=== PATIENT | female | born 1975 | race Two or more races ===

== ENCOUNTER 2019-01-09 08:59 | Outpatient (CLI) | payer OTHER | END 2019-01-09 09:07 | disposition home or self-care (01) | LOC: LAB 08:59 | DX: E16.1 Other hypoglycemia (principal); E78.49 Other hyperlipidemia; C56.2 Malignant neoplasm of left ovary ==

== ENCOUNTER → 2019-01-09 | Outpatient (CLI) | payer OTHER | END | disposition home or self-care (01) | LOC: MRI 09:22 | DX: R19.07 Generalized intra-abdominal and pelvic swelling, mass and lump (principal) | CPT/HCPCS: 72196 ==

== ENCOUNTER 2020-07-17 11:15 | Inpatient (IN) | payer OTHER ==
[~2020-07-17] VITALS: Ht 170.2 cm; Wt 59.0 kg
[2020-07-17] MEDS ORDERED: LEVOTHYROXINE25 MCG PO (15:26)
[2020-07-23] MEDS ORDERED: CELECOXIB200 MG (09:37)
[2020-07-23] MEDS ORDERED: MEDROXYPROGESTE10 MG (09:37)
[2020-07-23] MEDS ORDERED: TRI-LO-SPRINTE1 EACH (09:38)
== END 2020-07-24 11:35 | disposition home or self-care (01) | DRG 743 ==
LOC: OB/GYN 07-23 06:05 → O/R 07-23 06:05 → SURH 07-23 11:15 → OB/GYN 07-23 11:17 → SURH 07-23 12:15 → OB/GYN 07-24 11:35
PROVIDERS: ADMIT Obstetrics & Gynecology Gynecologic Oncology; ATTEND Obstetrics & Gynecology Gynecologic Oncology
PROC: 0UB90ZZ Excision of Uterus, Open Approach (ICD-10-PCS; principal; 2020-07-23 12:15)
DX: D25.1 Intramural leiomyoma of uterus (principal); E03.8 Other specified hypothyroidism

== ENCOUNTER 2020-07-26 16:02 | Emergency (ER) | payer OTHER ==
[~2020-07-26] VITALS: Ht 170.2 cm; Wt 59.0 kg
[~2020-07-26 16:02] MED LIST: CELECOXIB200 MG; LEVOTHYROXINE25 MCG PO; MEDROXYPROGESTE10 MG; TRI-LO-SPRINTE1 EACH
[2020-07-26] MEDS ORDERED: CEPHALEXIN500 MG PO (16:11)
[2020-07-26] MEDS ORDERED: FUSION PLUS CA1 EACH PO (16:11)
[2020-07-26] MEDS ORDERED: DICLOFENAC SODI75 MG PO (16:12)
== END 2020-07-26 20:21 | disposition home or self-care (01) ==
LOC: ER 16:02
DX: K59.09 Other constipation (principal)

== ENCOUNTER 2021-03-04 13:49 | Inpatient (IN) | payer OTHER ==
[~2021-03-04] VITALS: Ht 162.6 cm; Wt 59.0 kg
[~2021-03-04 13:49] MED LIST changes: +CEPHALEXIN500 MG PO; +DICLOFENAC SODI75 MG PO; +FUSION PLUS CA1 EACH PO
[2021-03-08] MEDS ORDERED: DICLOFENAC SODI75 MG (08:22)
[2021-03-21] MEDS ORDERED: OMEPRAZOLE20 M1 PO (10:47)
== END 2021-03-21 11:32 | disposition home or self-care (01) | DRG 329 ==
LOC: ER 13:49 → SURH 22:39
PROVIDERS: ADMIT Surgery; ATTEND Surgery
PROC: BW21ZZZ Computerized Tomography (CT Scan) of Abdomen and Pelvis (ICD-10-PCS; 2021-03-05)
PROC: 02HV33Z Insertion of Infusion Device into Superior Vena Cava, Percutaneous Approach (ICD-10-PCS; 2021-03-05)
PROC: BW2110Z Computerized Tomography (CT Scan) of Abdomen and Pelvis using Low Osmolar Contrast, Unenhanced and Enhanced (ICD-10-PCS; 2021-03-08)
PROC: BW2510Z Computerized Tomography (CT Scan) of Chest, Abdomen and Pelvis using Low Osmolar Contrast, Unenhanced and Enhanced (ICD-10-PCS; 2021-03-09)
PROC: 0DB80ZZ Excision of Small Intestine, Open Approach (ICD-10-PCS; 2021-03-12)
PROC: 0DTJ0ZZ Resection of Appendix, Open Approach (ICD-10-PCS; 2021-03-12)
PROC: 0DBU0ZZ Excision of Omentum, Open Approach (ICD-10-PCS; 2021-03-12)
PROC: 5A1935Z Respiratory Ventilation, Less than 24 Consecutive Hours (ICD-10-PCS; 2021-03-12)
PROC: 0BH17EZ Insertion of Endotracheal Airway into Trachea, Via Natural or Artificial Opening (ICD-10-PCS; 2021-03-12)
PROC: 0DN80ZZ Release Small Intestine, Open Approach (ICD-10-PCS; principal; 2021-03-12 13:15)
PROC: 0BP1XDZ Removal of Intraluminal Device from Trachea, External Approach (ICD-10-PCS; 2021-03-13)
PROC: 3E0F7GC Introduction of Other Therapeutic Substance into Respiratory Tract, Via Natural or Artificial Opening (ICD-10-PCS; 2021-03-13)
PROC: 3E0F7SF Introduction of Other Gas into Respiratory Tract, Via Natural or Artificial Opening (ICD-10-PCS; 2021-03-19)
DX: K56.50 Intestinal adhesions [bands], unspecified as to partial versus complete obstruction (principal); K55.029 Acute infarction of small intestine, extent unspecified; J95.822 Acute and chronic postprocedural respiratory failure; J98.11 Atelectasis; J90 Pleural effusion, not elsewhere classified; N39.0 Urinary tract infection, site not specified; K52.89 Other specified noninfective gastroenteritis and colitis; E03.8 Other specified hypothyroidism; Y65.8 Other specified misadventures during surgical and medical care; R09.02 Hypoxemia; Z20.822 Contact with and (suspected) exposure to COVID-19

== ENCOUNTER 2021-04-20 17:43 | Emergency (ER) | payer OTHER ==
[~2021-04-20] VITALS: Ht 170.2 cm; Wt 55.8 kg
[~2021-04-20 17:43] MED LIST changes: +DICLOFENAC SODI75 MG; +OMEPRAZOLE20 M1 PO
== END 2021-04-21 00:21 | disposition home or self-care (01) ==
LOC: ER 17:43
DX: R10.9 Unspecified abdominal pain (principal)

== ENCOUNTER 2023-08-30 23:51 | Emergency (ER) | payer OTHER ==
[~2023-08-30] VITALS: Ht 170.2 cm; Wt 64.4 kg
[2023-08-31] MEDS ORDERED: MEPERIDINE HCL/PF 25 MG/ML VIAL IV STA (01:07)
[2023-08-31] MEDS ORDERED: FAMOTIDINE/PF 20 MG/2 ML VIAL IV PUSH STA (01:07)
[2023-08-31] MEDS ORDERED: PROMETHAZINE HCL 50 MG/ML AMPUL IM STA (01:07)
[2023-08-31] MEDS ORDERED: PROMETHAZINE HCL 50 MG/ML AMPUL IM ONE (01:12)
[2023-08-31] MEDS ORDERED: FAMOTIDINE/PF 20 MG/2 ML VIAL ONE (01:13)
[2023-08-31] MEDS ORDERED: 0.9 % SODIUM CHLORIDE 1,000 ML IV ONE (01:15)
[2023-08-31 01:56] LABS: URINE APPEARANCE Clear; URINE BILIRRUBIN Negative (NEGATIVE); URINE BLOOD Negative; URINE COLOR Yellow; URINE GLUCOSE Negative (NEGATIVE); URINE LEUKOCYTE Negative; URINE NITRATE Negative; URINE PROTEIN Negative (NEGATIVE); URINE UROBILINOGEN 0.2 E.U./dl
[2023-08-31 02:00] LABS: URINE BACTERIA 730.6 uL (0.0-1933); URINE EPITHELIAL CELLS 30.7 uL (0.0-38.8); URINE RBC 8.5 uL (0.0-20.8); URINE WBC 10.1 uL (0.0-23.2)
[2023-08-31 02:21] LABS: HEMATOCRIT 40.3 % (36.0-45.00); HEMOGLOBIN 13.8 g/dL (12.0-15.00); MEAN CELL VOLUME 93.5 fL (80.00-100.00); MEAN CORPUSCULAR HEMOGLOBIN 31.9 pg (27.00-32.0); MEAN CORPUSCULAR HGB CONC 34.1 g/dl (32.0-36.0); PLATELET COUNT 251 K/uL (150-450); RED BLOOD COUNT 4.31 M/uL (4.00-6.00)
[2023-08-31 02:39] LABS: INR < 0.93; PARTIAL THROMBOPLASTIN TIME 26.8 SECONDS (22.0-34.0); PROTHROMBIN TIME 9.4 SECONDS (9.0-11.5)
[2023-08-31 02:58] LABS: ALBUMIN 3.1 gm/dL (3.4-5.0); BILIRUBIN TOTAL 0.48 mg/dL (0.3-1.2); BILIRUBIN,CONJUGATED 0.16 mg/dL (0.0-0.2); BILIRUBIN,UNCONJUGATED 0.32 mg/dL (0.0-0.6); CALCIUM 9.3 mg/dL (8.5-10.1); CREATININE SERUM 0.75 mg/dL (0.55-1.02); GFR 83.19; GLOBULINA 3.6 G/DL (2.4-3.5); POTASSIUM 4.08 mEq/L (3.5-5.1); TOTAL PROTEIN 6.7 gm/dL (6.4-8.2)
[2023-08-31] MEDS ORDERED: MINERAL OIL 30 ML BLIST.PACK PO STA (07:18)
[2023-08-31] MEDS ORDERED: MAGNESIUM HYDROXIDE 400 MG/5 ML ML PO STA (07:19)
[2023-08-31] MEDS ORDERED: MINERAL OIL 30 ML BLIST.PACK ONE (07:30)
[2023-08-31] MEDS ORDERED: MAGNESIUM HYDROXIDE 30 ML BLIST.PACK PO ONE (07:30)
[2023-08-31] MEDS ORDERED: ONDANSETRON ODT4 MG PO (07:49)
[2023-08-31] MEDS ORDERED: PEPCID40 MG PO (07:49)
== END 2023-08-31 07:56 ==
LOC: ER 23:52
PROVIDERS: General Practice
DX: O99.612 Diseases of the digestive system complicating pregnancy, second trimester (principal); Z3A.14 14 weeks gestation of pregnancy; R10.13 Epigastric pain; N20.0 Calculus of kidney

== ENCOUNTER 2023-09-02 18:50 | Emergency (ER) | payer OTHER ==
[~2023-09-02] VITALS: Ht 170.2 cm; Wt 63.5 kg
[~2023-09-02 18:50] MED LIST changes: +ONDANSETRON ODT4 MG PO; +PEPCID40 MG PO
[2023-09-02] MEDS ORDERED: HYOSCYAMINE SULFATE 0.125 MG TAB.SUBL ONE (21:39)
[2023-09-02] MEDS ORDERED: MAG HYDROX/ALUMINUM HYD/SIMETH 30 ML BLIST.PACK PO ONE ×2 (21:39→21:45)
[2023-09-02] MEDS ORDERED: HYOSCYAMINE SULFATE 0.125 MG TAB.SUBL SL ONE (21:45)
[2023-09-02 21:52] LABS: HEMATOCRIT 36.3 % (36.0-45.00); HEMOGLOBIN 12.6 g/dL (12.0-15.00); MEAN CELL VOLUME 92.9 fL (80.00-100.00); MEAN CORPUSCULAR HEMOGLOBIN 32.3 pg (27.00-32.0); MEAN CORPUSCULAR HGB CONC 34.8 g/dl (32.0-36.0); PLATELET COUNT 228 K/uL (150-450); RED BLOOD COUNT 3.91 M/uL (4.00-6.00); RED CELL DISTRIBUTION WIDTH 13.1 % (11.5-14.5)
[2023-09-02 22:16] LABS: URINE APPEARANCE Cloudy; URINE BILIRRUBIN Negative (NEGATIVE); URINE BLOOD Negative; URINE COLOR Yellow; URINE GLUCOSE Negative (NEGATIVE); URINE LEUKOCYTE Trace; URINE NITRATE Negative; URINE PROTEIN Negative (NEGATIVE); URINE UROBILINOGEN 0.2 E.U./dl
[2023-09-02 22:19] LABS: URINE EPITHELIAL CELLS 49.3 uL (0.0-38.8); URINE RBC 33.5 uL (0.0-20.8); URINE WBC 51.4 uL (0.0-23.2)
[2023-09-02 22:55] LABS: CALCIUM 9.1 mg/dL (8.5-10.1); CREATININE SERUM 0.6 mg/dL (0.55-1.02); GFR 107.62; POTASSIUM 4.4 mEq/L (3.5-5.1)
[2023-09-02 23:08] LABS: URINE CRYSTALS MODERATE /HPF; URINE YEAST NEGATIVE /hpf
== END 2023-09-03 00:42 | disposition home or self-care (01) ==
LOC: ER 18:51
PROVIDERS: Emergency Medicine
DX: O99.611 Diseases of the digestive system complicating pregnancy, first trimester (principal); K31.89 Other diseases of stomach and duodenum; K29.70 Gastritis, unspecified, without bleeding

== ENCOUNTER 2023-11-19 04:51 | Emergency (ER) | payer OTHER ==
[~2023-11-19] VITALS: Ht 170.2 cm; Wt 66.7 kg
[2023-11-19] MEDS ORDERED: DEXAMETHASONE SODIUM PHOSPHATE 4 MG/ML VIAL ONE (05:36)
[2023-11-19] MEDS ORDERED: DIPHENHYDRAMINE HCL 12.5 MG/5 ML BLIST.PACK PO ONE ×2 (05:37→05:45)
[2023-11-19] MEDS ORDERED: DEXAMETHASONE SODIUM PHOSPHATE 4 MG/ML VIAL IM ONE (05:45)
== END 2023-11-19 05:47 | disposition home or self-care (01) ==
LOC: ER 04:52
DX: R05.8 Other specified cough (principal)

== ENCOUNTER 2023-12-18 14:01 | Emergency (ER) | payer OTHER ==
[~2023-12-18] VITALS: Ht 170.2 cm; Wt 68.0 kg
[2023-12-18 18:06] LABS: HEMATOCRIT 33.7 % (36.0-45.00); HEMOGLOBIN 11.7 g/dL (12.0-15.00); MEAN CELL VOLUME 91.3 fL (80.00-100.00); MEAN CORPUSCULAR HEMOGLOBIN 31.7 pg (27.00-32.0); MEAN CORPUSCULAR HGB CONC 34.7 g/dl (32.0-36.0); PLATELET COUNT 218 K/uL (150-450); RED BLOOD COUNT 3.69 M/uL (4.00-6.00); RED CELL DISTRIBUTION WIDTH 13.4 % (11.5-14.5)
[2023-12-18 18:30] LABS: PH,URINE 7.5 (5.0-8.0); URINE APPEARANCE Clear; URINE BILIRRUBIN Negative (NEGATIVE); URINE BLOOD Negative; URINE COLOR Yellow; URINE GLUCOSE Negative (NEGATIVE); URINE KETONE Negative (NEGATIVE); URINE LEUKOCYTE Large; URINE NITRATE Negative; URINE PROTEIN Trace (NEGATIVE); URINE UROBILINOGEN 0.2 E.U./dl
[2023-12-18 18:34] LABS: URINE BACTERIA 1640.2 uL (0.0-1933); URINE EPITHELIAL CELLS 50.3 uL (0.0-38.8); URINE WBC 47.9 uL (0.0-23.2)
[2023-12-18 18:40] LABS: URINE RBC 1.2 uL (0.0-20.8)
== END 2023-12-18 22:37 | disposition home or self-care (01) ==
LOC: ER 14:02
PROVIDERS: Preventive Medicine Public Health & General Preventive Medicine
DX: O26.893 Other specified pregnancy related conditions, third trimester (principal); Z3A.29 29 weeks gestation of pregnancy; B37.89 Other sites of candidiasis

== ENCOUNTER 2024-01-17 13:28 | Outpatient (CLI) | payer OTHER | END 2024-01-17 15:38 | disposition home or self-care (01) | LOC: NST 13:28 | PROVIDERS: ATTEND Obstetrics & Gynecology Maternal & Fetal Medicine | DX: Z34.83 Encounter for supervision of other normal pregnancy, third trimester (principal) ==

== ENCOUNTER 2024-02-07 05:30 | Inpatient (IN) | payer OTHER ==
[2024-01-30 14:47] LABS: INR < 0.93; PARTIAL THROMBOPLASTIN TIME 26.1 SECONDS (22.0-34.0); PROTHROMBIN TIME 10.1 SECONDS (9.0-11.5)
[2024-01-30 14:56] LABS: ALBUMIN 2.2 gm/dL (3.4-5.0); BILIRUBIN TOTAL 0.87 mg/dL (0.3-1.2); CALCIUM 9.1 mg/dL (8.5-10.1); CREATININE SERUM 0.81 mg/dL (0.55-1.02); GFR 76.12; GLOBULINA 3.4 G/DL (2.4-3.5); POTASSIUM 3.79 mEq/L (3.5-5.1); TOTAL PROTEIN 5.6 gm/dL (6.4-8.2)
[~2024-02-07] VITALS: Ht 170.2 cm; Wt 2.7 kg
[~2024-02-07 05:30] MED LIST changes: +ATARAX50 MG; +PEPCID AC20 MG; +SENOKOT8.6 M1 PO; +SYNTHROID50 MCG PO; +ZOLOFT25 MG PO
[2024-02-07 06:18] VITALS: BP 120/80
[2024-02-07] MEDS ORDERED: ERYTHROMYCIN BASE OPHT 1GM EACH TUBE OP ONE (07:30)
[2024-02-07] MEDS ORDERED: OXYTOCIN 10 UNITS/ML VIAL IV ONE (07:30)
[2024-02-07] MEDS ORDERED: CITRIC ACID/SODIUM CITRATE 15 ML BLIST.PACK PO ONE (09:30)
[2024-02-07] MEDS ORDERED: CEFAZOLIN SODIUM 1,000 MG VIAL IV ONE (09:30)
[2024-02-07] MEDS ORDERED: OXYTOCIN 1,000 ML IV SCH (09:45)
[2024-02-07] MEDS ORDERED: MORPHINE SULFATE 4 MG/ML CARTRIDGE IV PRN (09:45)
[2024-02-07] MEDS ORDERED: MORPHINE SULFATE 4 MG/ML VIAL IV ONE ×2 (11:05→11:35)
[2024-02-07 13:18] VITALS: BP 112/72
[2024-02-07 15:39] VITALS: BP 104/67
[2024-02-07] MEDS ORDERED: hydrOXYzine PAMOATE 50 MG CAPSULE PO ONE (18:00)
[2024-02-07 20:33] VITALS: BP 114/79
[2024-02-08] VITALS: BP 109/73
[2024-02-08 08:34] VITALS: BP 110/67
[2024-02-08] MEDS ORDERED: IBUprofen 400 MG TABLET PO SCH (09:00)
[2024-02-08 09:35] LABS: HEMATOCRIT 36.7 % (36.0-45.00); HEMOGLOBIN 12.6 g/dL (12.0-15.00); MEAN CELL VOLUME 89.3 fL (80.00-100.00); MEAN CORPUSCULAR HEMOGLOBIN 30.7 pg (27.00-32.0); MEAN CORPUSCULAR HGB CONC 34.4 g/dl (32.0-36.0); PLATELET COUNT 170 K/uL (150-450); RED BLOOD COUNT 4.11 M/uL (4.00-6.00); RED CELL DISTRIBUTION WIDTH 14.8 % (11.5-14.5)
[2024-02-08 16:37] VITALS: BP 116/83
[2024-02-09 01:44] VITALS: BP 106/67
[2024-02-09] MEDS ORDERED: OxyCODONE HCL 5 MG TABLET (ROXICODONE) PO PRN (06:00)
[2024-02-09] MEDS ORDERED: BISACODYL 10 MG/SUPP.RECT SUPP.RECT RECTAL STA (07:58)
[2024-02-09 08:41] VITALS: BP 112/79
[2024-02-09] MEDS ORDERED: BISACODYL 10 MG/SUPP.RECT SUPP.RECT RECTAL NR (14:00)
[2024-02-09] MEDS ORDERED: FF) RHO(D) IMMUNE GLOBULIN (POM) IM ONE (18:30)
[2024-02-10 00:07] VITALS: BP 100/67
[2024-02-10 13:51] VITALS: BP 90/60
== END 2024-02-10 14:05 | disposition home or self-care (01) | DRG 786 ==
LOC: O/R 05:30 → OB/GYN 07:00
PROVIDERS: ADMIT Obstetrics & Gynecology; ATTEND Obstetrics & Gynecology
PROC: 4A1HXCZ Monitoring of Products of Conception, Cardiac Rate, External Approach (ICD-10-PCS; 2024-02-07)
PROC: 10D00Z1 Extraction of Products of Conception, Low, Open Approach (ICD-10-PCS; principal; 2024-02-07 07:00)
DX: O34.29 Maternal care due to uterine scar from other previous surgery (principal); O60.14X0 Preterm labor third trimester with preterm delivery third trimester, not applicable or unspecified; Z3A.36 36 weeks gestation of pregnancy; Z37.0 Single live birth; Z20.822 Contact with and (suspected) exposure to COVID-19